=== PATIENT | female | born 1940 | race Caucasian/White ===

== ENCOUNTER 2020-11-30 08:29 | Day surgery (SDC) | payer MEDICARE ==
[~2020-11-30] VITALS: Ht 157.5 cm; Wt 51.4 kg
[~2020-11-30 08:29] MED LIST: AMIO200T61 PO; AMIO200T67 PO; ASPI-611 PO; COR3.125T PO; FAMO20TA8 PO; FURO20TA4 PO; MULT-227 PO; SACU1TAB PO; SIMV-42 PO
[2020-11-30] MEDS ORDERED: sodium bicarbonate (8.4%) inj. 150 ML in dextrose 5%-water 1,000 ML IV ONE (09:30)
[2020-11-30 10:54] LABS: ALBUMIN 2.9 G/DL (3.4-5.0); ANION GAP 11 (8-16); BLOOD UREA NITROGEN 33 MG/DL (7-18); BUN/CREATININE RATIO 28.4 (6.6-38.0); CHLORIDE 115 MMOL/L (99-107); CREATININE 1.16 MG/DL (0.40-0.90); GLUCOSE 108 MG/DL (70-104); POTASSIUM 4.2 MMOL/L (3.5-5.1); SODIUM 153 MMOL/L (135-145); TOTAL CARBON DIOXIDE 27.5 MMOL/L (24-32); eGFR 45 ML/MIN
== END 2020-11-30 11:30 | disposition home or self-care (01) ==
LOC: SSTAY O 08:29
PROVIDERS: ATTEND Thoracic Surgery (Cardiothoracic Vascular Surgery)
DX: I71.01 Dissection of thoracic aorta (principal); Z53.8 Procedure and treatment not carried out for other reasons; Z86.73 Personal history of transient ischemic attack (TIA), and cerebral infarction without residual deficits; Z95.0 Presence of cardiac pacemaker; Z88.0 Allergy status to penicillin; Z91.040 Latex allergy status; Z88.2 Allergy status to sulfonamides
CPT/HCPCS: 36415; 80048

== ENCOUNTER 2020-12-02 08:25 | Outpatient (CLI) | payer MEDICARE ==
[2020-12-02] MEDS ORDERED: iohexol 350MG/ML 100ml bottle IV ONE (08:53)
== END 2020-12-02 23:59 | disposition home or self-care (01) ==
LOC: RAD 08:25 → EDSTATUS 09:00 → RAD 23:59
PROVIDERS: ATTEND Thoracic Surgery (Cardiothoracic Vascular Surgery)
DX: N13.30 Unspecified hydronephrosis (principal); N13.4 Hydroureter; R60.9 Edema, unspecified; M47.819 Spondylosis without myelopathy or radiculopathy, site unspecified; E27.49 Other adrenocortical insufficiency; I70.0 Atherosclerosis of aorta; J90 Pleural effusion, not elsewhere classified; I27.20 Pulmonary hypertension, unspecified; I51.7 Cardiomegaly; I71.00 Dissection of unspecified site of aorta; I71.9 Aortic aneurysm of unspecified site, without rupture; M19.012 Primary osteoarthritis, left shoulder; M19.011 Primary osteoarthritis, right shoulder; J98.11 Atelectasis
CPT/HCPCS: 71275; 74174; Q9967

== ENCOUNTER 2021-01-01 18:16 | Inpatient (IN) | payer MEDICARE ==
[~2021-01-01] VITALS: Ht 157.5 cm; Wt 47.7 kg
--- NOTE | 2021-01-01 19:47 | NUR ---
UPDATED FAMILY ON PHONE
[2021-01-01 19:48] LABS: EOSINOPHILS # (AUTO) 0.1 X10'3 (0-0.9); EOSINOPHILS % (AUTO) 1.2 % (0-6); HEMOGLOBIN 13.5 g/dl (12.0-16.0); LYMPHOCYTES # (AUTO) 0.6 X10'3 (1.1-4.8); NEUTROPHILS # (AUTO) 4.4 X10'3 (1.8-7.7); WHITE BLOOD COUNT 5.6 X10'3 (4.5-11.0)
[2021-01-01 19:50] LABS: BASOPHILS % (AUTO) 0.6 % (0-1); HEMATOCRIT 41.5 % (35.0-45.0); LYMPHOCYTES % (AUTO) 10.5 % (21-51); MEAN CORPUSCULAR HEMOGLOBIN 30.6 PG (27.0-31.0); MEAN CORPUSCULAR HGB CONC 32.5 g/dL (33.0-36.5); MONOCYTES # (AUTO) 0.6 X10'3 (0-0.9); MONOCYTES % (AUTO) 9.8 % (2-12); NEUTROPHILS % (AUTO) 77.9 % (42-75); PLATELET COUNT 213 X10'3 (140-440); RED BLOOD COUNT 4.41 X10'6 (4.20-5.60); RED CELL DISTRIBUTION WIDTH 17.8 % (11.5-14.5)
[2021-01-01] MEDS ORDERED: iohexol 350MG/ML 100ml bottle IV ONE (20:07)
[2021-01-01 20:08] LABS: ALBUMIN 3.1 G/DL (3.4-5.0); ANION GAP 12 (8-16); BLOOD UREA NITROGEN 26 MG/DL (7-18); BUN/CREATININE RATIO 23.4 (6.6-38.0); CALCIUM 8.7 MG/DL (8.5-10.1); CHLORIDE 108 MMOL/L (99-107); CREATININE 1.11 MG/DL (0.40-0.90); GLUCOSE 112 MG/DL (70-104); POTASSIUM 3.4 MMOL/L (3.5-5.1); SODIUM 150 MMOL/L (135-145); TOTAL CARBON DIOXIDE 30.1 MMOL/L (24-32); eGFR 47 ML/MIN
[2021-01-01] MEDS ORDERED: aspirin 325mg tablet PO ONE (20:25)
[2021-01-01] MEDS ORDERED: predniSONE 20 mg tablet PO ONE (20:40)
[2021-01-01] MEDS ORDERED: diphenhydrAMINE 25mg capsule PO ONE (20:40)
[2021-01-01] MEDS ORDERED: famotidine 20mg tablet PO ONE (20:40)
[2021-01-01 21:07] LABS: D-DIMER 1.04 MG/L FEU (0-0.50)
[2021-01-01] MEDS ORDERED: methylPREDNISolone sod succ 125mg/2ml vial IV ONE (21:20)
--- NOTE | 2021-01-01 21:23 | NUR ---
DR STERLING AWARE OF PT'S TROPONIN
--- NOTE | 2021-01-01 23:01 | NUR ---
DR MARC REYES WITH MISSED DOSE OF SOLUMEDROL. TIMED FOR ONE HOUR BEFORE CTA TOMORROW MORNING NOW.
[2021-01-02] MEDS ORDERED: methylPREDNISolone sod succ 125mg/2ml vial IV ONE (01:30)
[2021-01-02] MEDS ORDERED: diphenhydrAMINE 50 mg/ml inj IV ONE (02:00)
--- NOTE | 2021-01-02 02:30 | NUR ---
PT TO CT
--- NOTE | 2021-01-02 02:45 | NUR ---
PT BACK FROM CT. BACK ON TRAINING SPECIALIST
--- NOTE | 2021-01-02 05:02 | NUR ---
PT RESTING COMFORTABLY.
[2021-01-02] MEDS ORDERED: diphenhydrAMINE 50 mg/ml inj IV PRN (05:25)
[2021-01-02] MEDS ORDERED: mag hydrox/Alum hydrox/simeth 30ml oral suspension PO PRN (05:25)
[2021-01-02] MEDS ORDERED: acetaminophen 325mg tablet PO PRN ×2 (05:25)
[2021-01-02] MEDS ORDERED: ondansetron 4mg rapidly disintigrating tab PO PRN (05:25)
[2021-01-02] MEDS ORDERED: HYDROcodone/acetaminophen 10/325mg tab PO PRN (05:25)
[2021-01-02] MEDS ORDERED: HYDROcodone/acetaminophen 5mg/325mg tablet PO PRN (05:25)
[2021-01-02] MEDS ORDERED: bisacodyl 10mg suppository rectal RC PRN (05:25)
[2021-01-02] MEDS ORDERED: normal saline 1000ml 1,000 ML IV SCH (05:25)
[2021-01-02] MEDS ORDERED: acetaminophen 650mg rectal suppository RC PRN (05:25)
[2021-01-02] MEDS ORDERED: diphenhydrAMINE 25mg capsule PO PRN (05:25)
[2021-01-02] MEDS ORDERED: magnesium hydroxide 30ml (MOM) UD suspension PO PRN (05:25)
[2021-01-02] MEDS ORDERED: morphine 2 MG/ML inj. syringe IV PRN ×2 (05:25)
[2021-01-02] MEDS ORDERED: ondansetron/PF 4mg/2ml inj IV PRN (05:25)
[2021-01-02] MEDS ORDERED: FAMO40TA58 PO (05:38)
[2021-01-02] MEDS ORDERED: LEVO100T9 PO (05:38)
[2021-01-02] MEDS ORDERED: potassium Cl 40MEQ/1/2NS 520ml 520 ML IV PRN (06:10)
[2021-01-02] MEDS ORDERED: potassium Cl 20 mEq SR tablet PO PRN ×2 (06:10)
[2021-01-02] MEDS ORDERED: magnesium Cl slow-release 64mg tablet PO PRN (06:10)
[2021-01-02] MEDS ORDERED: magnesium 4gm in 100ml NS 100 ML IV PRN (06:10)
[2021-01-02] MEDS ORDERED: pantoprazole 40mg Tablet.DR PO SCH (07:30)
[2021-01-02] MEDS ORDERED: docusate sod 100mg capsule PO SCH (08:00)
[2021-01-02] MEDS ORDERED: K and/or MAG REPLACEMENT MC SCH (08:00)
[2021-01-02] MEDS ORDERED: furosemide 10 MG/1 ML 10ml inj IV SCH (08:00)
[2021-01-02] MEDS ORDERED: ACET-812 PO (09:27)
[2021-01-02] MEDS ORDERED: CALC-854 PO (09:27)
[2021-01-02] MEDS ORDERED: AMIO200T39 PO (09:27)
[2021-01-02] MEDS ORDERED: LISI-642 PO (09:27)
[2021-01-02] MEDS ORDERED: CHOL400T8 PO (09:27)
[2021-01-02] MEDS ORDERED: FMLOS OP (09:27)
[2021-01-02 09:38] LABS: PARTIAL THROMBOPLASTIN TIME 27 SECONDS (22-32)
[2021-01-02 09:48] LABS: MAGNESIUM 2.2 MG/DL (1.5-2.4); PHOSPHORUS 4.5 MG/DL (2.3-4.5); POTASSIUM 3.4 MMOL/L (3.5-5.1)
--- NOTE | 2021-01-02 10:00 | NUR ---
DR GANDHI AT BEDSIDE.
[2021-01-02] MEDS ORDERED: CARV3.1244 PO (10:27)
[2021-01-02] MEDS ORDERED: FURO-150 PO (10:27)
[2021-01-02] MEDS ORDERED: SACU1TAB PO (10:27)
--- NOTE | 2021-01-02 10:37 | NUR ---
FAMILY AT BEDSIDE .
[2021-01-02] MEDS ORDERED: PRED5DRO23 EACHEYE (10:42)
--- NOTE | 2021-01-02 11:37 | NUR ---
DR BYRD AT BEDSIDE.
--- NOTE | 2021-01-02 11:51 | NUR ---
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 WILL NOTIFY THE FAMILY ONCES THE DAUGHTER AT BEDSIDE.
--- NOTE | 2021-01-02 12:30 | NUR ---
PT AND FAMILY DECIDED NOT TO LEAVE AMA .
--- NOTE | 2021-01-02 14:39 | NUR ---
paged dr redding at this time as pt decided to leave ama if provider can explain it to the pt and get ama form signed.
[2021-01-02 14:40] VITALS: BP 103/80
[2021-01-02] MEDS ORDERED: temazepam 15mg capsule PO PRN (21:00)
== END 2021-01-02 17:09 | disposition left against medical advice (07) | DRG 280 ==
LOC: ER 18:17 → ED HOLD 01-02 05:31
PROVIDERS: ADMIT Family Medicine; ATTEND Internal Medicine
PROC: B32T1ZZ Computerized Tomography (CT Scan) of Left Pulmonary Artery using Low Osmolar Contrast (ICD-10-PCS; principal; 2021-01-02)
PROC: B3201ZZ Computerized Tomography (CT Scan) of Thoracic Aorta using Low Osmolar Contrast (ICD-10-PCS; 2021-01-02)
PROC: B32S1ZZ Computerized Tomography (CT Scan) of Right Pulmonary Artery using Low Osmolar Contrast (ICD-10-PCS; 2021-01-02)
PROC: B4201ZZ Computerized Tomography (CT Scan) of Abdominal Aorta using Low Osmolar Contrast (ICD-10-PCS; 2021-01-02)
PROC: B4241ZZ Computerized Tomography (CT Scan) of Superior Mesenteric Artery using Low Osmolar Contrast (ICD-10-PCS; 2021-01-02)
PROC: B4281ZZ Computerized Tomography (CT Scan) of Bilateral Renal Arteries using Low Osmolar Contrast (ICD-10-PCS; 2021-01-02)
PROC: B4211ZZ Computerized Tomography (CT Scan) of Celiac Artery using Low Osmolar Contrast (ICD-10-PCS; 2021-01-02)
DX: I11.0 Hypertensive heart disease with heart failure (principal); I21.A1 Myocardial infarction type 2; I50.23 Acute on chronic systolic (congestive) heart failure; I71.00 Dissection of unspecified site of aorta; E87.0 Hyperosmolality and hypernatremia; N17.9 Acute kidney failure, unspecified; N13.30 Unspecified hydronephrosis; I25.10 Atherosclerotic heart disease of native coronary artery without angina pectoris; Z53.29 Procedure and treatment not carried out because of patient's decision for other reasons; K21.9 Gastro-esophageal reflux disease without esophagitis; E03.9 Hypothyroidism, unspecified; E78.5 Hyperlipidemia, unspecified; E87.6 Hypokalemia; I48.91 Unspecified atrial fibrillation; Z95.0 Presence of cardiac pacemaker; Z88.0 Allergy status to penicillin; Z88.2 Allergy status to sulfonamides; Z91.040 Latex allergy status; Z79.899 Other long term (current) drug therapy; Z79.82 Long term (current) use of aspirin
CPT/HCPCS: 36415; 71045; 71275; 74174; 80048; 83036; 83735; 83880; 84100; 84132; 84484; 85025; 85379; 85610; 85730; 93005; 99285; G0378; J1200; J1940; J2930; J7030; J7512; Q0163; Q9967